=== PATIENT | female | born 1975 | race Caucasian/White ===

== ENCOUNTER 2018-02-19 09:03 | Outpatient (CLI) | payer OTHER ==
[~2018-02-19 09:03] MED LIST: EMTR1TAB PO; RALT400T PO
[2018-02-19 09:35] LABS: BASOPHILS % (AUTO) 0.5 % (0-1); EOSINOPHILS # (AUTO) 0.2 X10'3 (0-0.9); EOSINOPHILS % (AUTO) 3.5 % (0-6); HEMATOCRIT 40.1 % (35.0-45.0); HEMOGLOBIN 13.8 g/dl (12.0-16.0); LYMPHOCYTES # (AUTO) 1.5 X10'3 (1.1-4.8); MEAN CORPUSCULAR HEMOGLOBIN 31.1 PG (27.0-31.0); MEAN CORPUSCULAR HGB CONC 34.5 % (33.0-36.5); MEAN CORPUSCULAR VOLUME 90.2 FL (78-98); MEAN PLATELET VOLUME 8.9 FL (7.4-10.4); MONOCYTES # (AUTO) 0.6 X10'3 (0-0.9); MONOCYTES % (AUTO) 10.1 % (2-12); NEUTROPHILS # (AUTO) 3.6 X10'3 (1.8-7.7); NEUTROPHILS % (AUTO) 60.9 % (42-75); PLATELET COUNT 223 X10'3 (140-440); RED BLOOD COUNT 4.44 X10'6 (4.20-5.60); RED CELL DISTRIBUTION WIDTH 13.4 % (11.5-14.5)
[2018-02-19 09:48] LABS: CLARITY,URINE SLIGHTLY CLOUDY (Clear); COLOR,URINE YELLOW (Yellow); GLUCOSE, URINE NEGATIVE (Neg); KETONES,URINE NEGATIVE (Neg); LEUKOCYTE ESTERASE ,URINE NEGATIVE (Neg); NITRITES, URINE NEGATIVE (Neg); OCCULT BLOOD,URINE NEGATIVE (Neg); PROTEIN,URINE NEGATIVE (Neg); UROBILINOGEN,URINE 0.2 E.U/dL (0.2-1.0)
[2018-02-19 10:01] LABS: ALANINE AMINOTRANSFERASE 28 U/L (12-78); ALBUMIN 3.4 G/DL (3.4-5.0); ALKALINE PHOSPHATASE 68 IU/L (46-116); ANION GAP 7 (8-16); ASPARTATE AMINO TRANSFERASE 20 U/L (10-37); BILIRUBIN,TOTAL 0.8 MG/DL (0.1-1.0); BLOOD UREA NITROGEN 10 MG/DL (7-18); BUN/CREATININE RATIO 11.8 (6.6-38.0); CALCIUM 8.3 MG/DL (8.5-10.1); CHLORIDE 106 MMOL/L (99-107); CHOL/HDL RATIO 3.2 (0.00-4.99); CHOLESTEROL 181 MG/DL (0-200); CREATININE 0.85 MG/DL (0.40-0.90); GLUCOSE 96 MG/DL (70-104); HDL CHOLESTEROL 57 MG/DL (35-60); LDL CHOLESTEROL 117 MG/DL (50-100); POTASSIUM 4.3 MMOL/L (3.5-5.1); SODIUM 140 MMOL/L (135-145); TOTAL CARBON DIOXIDE 27.3 MMOL/L (24-32); TOTAL PROTEIN 6.7 G/DL (6.4-8.2); TRIGLYCERIDES 70 MG/DL (20-135); eGFR 73 ML/MIN
[2018-02-19 10:03] LABS: UA COLLECTION TYPE CLN CATCH MIDSTREAM
[2018-02-19 10:12] LABS: BACTERIA,URINE NONE SEEN /HPF (Neg); MUCUS STRANDS FEW /LPF (Neg); RBC,URINE NONE SEEN /HPF (0-2); SQUAMOUS EPITHELIAL CELL,UR FEW /LPF (FEW); WBC,URINE 0-4 /HPF (0-4)
== END 2018-02-19 23:59 | disposition home or self-care (01) ==
LOC: LAB 09:03
PROVIDERS: ATTEND Family Medicine
DX: Z00.01 Encounter for general adult medical examination with abnormal findings (principal)
CPT/HCPCS: 36415; 80053; 80061; 81001; 84439; 84443; 85025

== ENCOUNTER 2019-02-17 15:45 | Outpatient (CLI) | payer OTHER ==
[2019-02-17 16:43] LABS: CLARITY,URINE CLEAR (Clear); COLOR,URINE YELLOW (Yellow); GLUCOSE, URINE NEGATIVE (Neg); KETONES,URINE NEGATIVE (Neg); LEUKOCYTE ESTERASE ,URINE NEGATIVE (Neg); NITRITES, URINE NEGATIVE (Neg); OCCULT BLOOD,URINE NEGATIVE (Neg); PH,URINE 5.5 (4.8-8.0); PROTEIN,URINE NEGATIVE (Neg); UROBILINOGEN,URINE 0.2 E.U/dL (0.2-1.0)
[2019-02-17 16:44] LABS: UA COLLECTION TYPE CLN CATCH MIDSTREAM
[2019-02-17 16:48] LABS: BASOPHILS # (AUTO) 0.1 X10'3 (0-0.2); BASOPHILS % (AUTO) 0.6 % (0-1); EOSINOPHILS # (AUTO) 0.1 X10'3 (0-0.9); EOSINOPHILS % (AUTO) 1.6 % (0-6); HEMATOCRIT 41.5 % (35.0-45.0); HEMOGLOBIN 13.7 g/dl (12.0-16.0); LYMPHOCYTES # (AUTO) 1.9 X10'3 (1.1-4.8); MEAN CORPUSCULAR HEMOGLOBIN 28.6 PG (27.0-31.0); MEAN CORPUSCULAR HGB CONC 32.9 g/dL (33.0-36.5); MEAN PLATELET VOLUME 9.7 FL (7.4-10.4); MONOCYTES # (AUTO) 0.6 X10'3 (0-0.9); MONOCYTES % (AUTO) 6.2 % (2-12); NEUTROPHILS # (AUTO) 6.6 X10'3 (1.8-7.7); NEUTROPHILS % (AUTO) 71.6 % (42-75); PLATELET COUNT 269 X10'3 (140-440); RED BLOOD COUNT 4.77 X10'6 (4.20-5.60); WHITE BLOOD COUNT 9.2 X10'3 (4.5-11.0)
[2019-02-17 17:11] LABS: ALANINE AMINOTRANSFERASE 31 U/L (12-78); ALBUMIN 3.9 G/DL (3.4-5.0); ALBUMIN/GLOBULIN RATIO 1.2 (1.1-1.5); ALKALINE PHOSPHATASE 73 IU/L (46-116); ANION GAP 7 (8-16); ASPARTATE AMINO TRANSFERASE 16 U/L (10-37); BILIRUBIN,TOTAL 0.5 MG/DL (0.1-1.0); BLOOD UREA NITROGEN 6 MG/DL (7-18); BUN/CREATININE RATIO 6.4 (6.6-38.0); CALCIUM 8.5 MG/DL (8.5-10.1); CHLORIDE 104 MMOL/L (99-107); CHOL/HDL RATIO 3.6 (0.00-4.99); CHOLESTEROL 190 MG/DL (0-200); CREATININE 0.94 MG/DL (0.40-0.90); GLUCOSE 93 MG/DL (70-104); HDL CHOLESTEROL 53 MG/DL (35-60); LDL CHOLESTEROL 126 MG/DL (50-100); POTASSIUM 3.8 MMOL/L (3.5-5.1); SODIUM 137 MMOL/L (135-145); TOTAL CARBON DIOXIDE 25.8 MMOL/L (24-32); TOTAL PROTEIN 7.1 G/DL (6.4-8.2); TRIGLYCERIDES 73 MG/DL (20-135); eGFR 65 ML/MIN
== END 2019-02-17 23:59 | disposition home or self-care (01) ==
LOC: LAB 15:45
PROVIDERS: ATTEND Family Medicine
DX: Z00.01 Encounter for general adult medical examination with abnormal findings (principal)
CPT/HCPCS: 36415; 80053; 80061; 81003; 84439; 84443; 85025

== ENCOUNTER 2019-08-28 08:20 | Outpatient (CLI) | payer OTHER | END 2019-08-28 23:59 | disposition home or self-care (01) | LOC: RAD 08:20 | PROVIDERS: ATTEND Family Medicine | DX: M79.672 Pain in left foot (principal) | CPT/HCPCS: 73718 ==

== ENCOUNTER 2020-04-09 09:43 | Day surgery (SDC) | payer BC ==
[2020-04-02 14:51] LABS: BASOPHILS # (AUTO) 0.1 X10'3 (0-0.2); BASOPHILS % (AUTO) 1.1 % (0-1); EOSINOPHILS # (AUTO) 0.2 X10'3 (0-0.9); EOSINOPHILS % (AUTO) 2.6 % (0-6); LYMPHOCYTES # (AUTO) 1.9 X10'3 (1.1-4.8); LYMPHOCYTES % (AUTO) 28.5 % (21-51); MEAN CORPUSCULAR HEMOGLOBIN 28.1 PG (27.0-31.0); MEAN CORPUSCULAR HGB CONC 32.3 g/dL (33.0-36.5); MEAN CORPUSCULAR VOLUME 86.9 FL (78-98); MEAN PLATELET VOLUME 9.2 FL (7.4-10.4); MONOCYTES # (AUTO) 0.5 X10'3 (0-0.9); MONOCYTES % (AUTO) 7.8 % (2-12); NEUTROPHILS # (AUTO) 4.1 X10'3 (1.8-7.7); PRE OP HEMATOCRIT 39.1 % (35.0-45.0); PRE OP HEMOGLOBIN 12.6 g/dL (12.0-16.0); PRE OP PLATELET COUNT 282 X10'3 (140-440); RED CELL DISTRIBUTION WIDTH 13.8 % (11.5-14.5)
[2020-04-02 15:10] LABS: ALBUMIN 3.8 G/DL (3.4-5.0); ALBUMIN/GLOBULIN RATIO 1.3 (1.1-1.5); ALKALINE PHOSPHATASE 67 IU/L (46-116); BLOOD UREA NITROGEN 5 MG/DL (7-18); BUN/CREATININE RATIO 5.7 (6.6-38.0); CALCIUM 8.4 MG/DL (8.5-10.1); CHLORIDE 105 MMOL/L (99-107); CREATININE 0.87 MG/DL (0.40-0.90); PRE OP ALT 30 U/L (30-65); PRE OP ANION GAP 7 (8-16); PRE OP AST 22 U/L (10-37); PRE OP BILIRUB, TOTAL 0.9 MG/DL (0.0-1.0); PRE OP GLUCOSE 91 MG/DL (70-104); PRE OP POTASSIUM 3.9 MMOL/L (3.4-5.1); PRE OP SODIUM 139 MMOL/L (135-145); TOTAL CARBON DIOXIDE 27.1 MMOL/L (24-32); TOTAL PROTEIN 6.8 G/DL (6.4-8.2); eGFR 71 ML/MIN
[2020-04-02 15:41] LABS: CLARITY,URINE CLEAR (Clear); COLOR,URINE YELLOW (Yellow); GLUCOSE, URINE NEGATIVE (Neg); KETONES,URINE TRACE mg/dl (Neg); LEUKOCYTE ESTERASE ,URINE NEGATIVE (Neg); NITRITES, URINE NEGATIVE (Neg); OCCULT BLOOD,URINE NEGATIVE (Neg); PROTEIN,URINE NEGATIVE (Neg); UROBILINOGEN,URINE 0.2 E.U/dL (0.2-1.0)
[2020-04-02 15:43] LABS: UA COLLECTION TYPE CLN CATCH MIDSTREAM
[2020-04-09] VITALS (8 sets, daily range): BP systolic 125–140; BP diastolic 78–89
[~2020-04-09] VITALS: Ht 177.8 cm; Wt 92.8 kg
[~2020-04-09 09:43] MED LIST changes: +BIOCOMPLETE PO; -EMTR1TAB PO; +LORA-512 PO; +LYSI500T11 PO; +MESSAGE TO NURSING IV ONE; +OMEG-133 PO; +PROTANDIN PO; -RALT400T PO; +VALA500T41 PO; +VITE1000C PO; +[UNRECOGNIZED DRUG - MIXTURE] PO; +famotidine 20mg tablet PO ONE; +ringers solution, lacted 1,000 ML IV SCH
[2020-04-09] MEDS ORDERED: cefazolin/dext.iso 2gm/50ml 50 ML IV ONE (10:30)
[2020-04-09] MEDS ORDERED: cloNIDine hcl/PF 100mcg/ml inj ONE (11:39)
[2020-04-09] MEDS ORDERED: bacitracin 15gm ointment TP ONE (11:40)
[2020-04-09] MEDS ORDERED: BUPIVAcaine/PF 2.5 mg/ml (0.25%) 30ml vial ONE (11:40)
[2020-04-09] MEDS ORDERED: fentaNYL/PF 50MCG/1 ML 2ML syringe ONE (11:55)
[2020-04-09] MEDS ORDERED: midazolam 2 mg/2 ml injection ONE (11:55)
[2020-04-09] MEDS ORDERED: propofol inj 20 ML IV ONE (11:55)
[2020-04-09] MEDS ORDERED: ROPIVAcaine 0.5% (5mg/ml) 30ml vial ONE (11:57)
[2020-04-09] MEDS ORDERED: ringers solution, lacted 1,000 ML IV SCH (12:07)
[2020-04-09] MEDS ORDERED: ondansetron/PF 4mg/2ml inj IV PRN (12:10)
[2020-04-09] MEDS ORDERED: morphine 2 MG/ML inj. syringe IV PRN (12:10)
[2020-04-09] MEDS ORDERED: proCHLORperazine 10 MG/2 ml inj IV PRN (12:10)
[2020-04-09] MEDS ORDERED: meperidine/PF 25mg/ml syringe IV PRN ×3 (12:10)
[2020-04-09] MEDS ORDERED: morphine 4 MG/ML inj SYRINge IV PRN (12:10)
[2020-04-09] MEDS ORDERED: sevoflurane 250ml liquid IH ONE (12:21)
[2020-04-09] MEDS ORDERED: ondansetron/PF 4mg/2ml inj ONE (14:22)
[2020-04-09] MEDS ORDERED: dexamethasone sod phosphate 4mg/ml inj. ONE (14:22)
--- NOTE | 2020-04-09 15:48 | NUR ---
PATIENT HAS MET ALL DC CRITERIA FOR HOME. VSS. PAIN AT A TOLERABLE LEVEL. PATIENT TAKEN OUT VIA WHEELCHAIR TO PERSONAL VEHICLE WHERE PATIENT WAS TAKEN HOME. DRESSING CDI. ALL DC INSTRUCTIONS DISCUSSED WITH PATIENT. ALL QUESTIONS ANSWERED. MOTHER PRESENT TO DRIVE PATIENT HOME. PATIENT GIVEN CAST ELEVATOR WELL AND INSTRUCTED TO ELEVATE ANKLE ABOVE KNEE AND KNEE ABOVE HEART TO ASSIST IN SWELLING CONTROL. VSS. DENIES PAIN 2' NERVE BLOCK. TOES PWD AND NO DRAINAGE PRESENT TO SPLINT. WHEELCHAIRED OVER TO TOILET WHERE SHE MAINTAINED NWB TO LLE, PERFORMED ALL SELF CARE AND TRANSFERED INDEPENDENTLY BACK TO CHAIR AND THEN INTO VEHICLE. CARE TURNED OVER TO HER FAMILY. Addendum: 04/09/20 at 1609 by Abhijit Long RN, RN Amended: Links added.
== END 2020-04-09 15:48 | disposition home or self-care (01) ==
LOC: PAS 09:43
PROVIDERS: ATTEND Podiatrist Foot & Ankle Surgery
DX: M21.42 Flat foot [pes planus] (acquired), left foot (principal); M13.89 Other specified arthritis, multiple sites; G89.18 Other acute postprocedural pain; Z79.899 Other long term (current) drug therapy; Z88.0 Allergy status to penicillin; Z72.89 Other problems related to lifestyle
CPT/HCPCS: 27687; 28238; 28300; 28304; 36415; 64450; 73620; 76000; 76942; 80053; 81003; 82948; 85025; 87635; A6223; C1713; J0735; J1100; J2250; J2405; J2704; J3010; J3490; A4618; A6253; A6446; A6449; A7000; J2795; J7120